=== PATIENT | female | born 1995 | race Caucasian/White ===

== ENCOUNTER → 2019-08-28 11:30 | Outpatient (BNVA) | payer MEDICAID, SELFPAY | PROVIDERS: Visit Provider Obstetrics & Gynecology | DX: N92.6 Irregular menstruation, unspecified (principal) | CPT/HCPCS: 84702 ==

== ENCOUNTER → 2019-10-08 11:00 | Outpatient (BNVA) | payer MEDICAID, SELFPAY | PROVIDERS: Referring Provider Obstetrics & Gynecology Female Pelvic Medicine and Reconstructive Surgery; Visit Provider Obstetrics & Gynecology Female Pelvic Medicine and Reconstructive Surgery | DX: N92.6 Irregular menstruation, unspecified (principal) | CPT/HCPCS: 84703 ==

== ENCOUNTER → 2020-02-07 16:06 | Outpatient (BNVA) | payer MEDICAID, SELFPAY | PROVIDERS: PCP Internal Medicine; Visit Provider Nurse Practitioner Family | DX: Z20.2 Contact with and (suspected) exposure to infections with a predominantly sexual mode of transmission (principal) | CPT/HCPCS: 87491; 87591 ==

== ENCOUNTER → 2020-02-20 15:41 | Outpatient (BNVA) | payer MEDICAID, SELFPAY | PROVIDERS: PCP Internal Medicine; Visit Provider Nurse Practitioner | DX: R30.0 Dysuria (principal); N89.8 Other specified noninflammatory disorders of vagina | CPT/HCPCS: 81000; 84450; 87070 ==

== ENCOUNTER 2020-07-22 16:13 | Outpatient (CLI) | payer MEDICAID, BC, SELFPAY ==
--- NOTE | 2020-07-22 16:36 | XRR_ITS ---
PROCEDURE INFORMATION: Exam: XR Thoracic Spine, 3 Views Exam date and time: 07/22/2020 4:37 PM Age: 25 years old Clinical indication: Pain in thoracic spine; Without myelpathy or radiculopathy; Patient HX: Chronic back pain. (needed for breast augmentation) TECHNIQUE: Imaging protocol: XR of the thoracic spine, 3 views. COMPARISON: CT Thoracic Sp[place] wo IV* [id number] 11/30/2015 6:09 AM FINDINGS: Bones/joints: There is mild lower thoracic scoliosis convex to the right. Otherwise the thoracic spine is unremarkable with no fracture or significant degenerative change. Soft tissues: Unremarkable. XR/XR thoracic spine 3V* [id number] IMPRESSION: Mild scoliosis. No other significant abnormality is seen in the thoracic spine.
--- NOTE | 2020-07-22 16:36 | XRR_ITS ---
PROCEDURE INFORMATION: Exam: XR Cervical Spine, 2 or 3 Views Exam date and time: 07/22/2020 4:37 PM Age: 25 years old Clinical indication: Patient HX: Chronic back pain. (needed for breast augmentation) TECHNIQUE: Imaging protocol: XR of the cervical spine, 2 or 3 views. COMPARISON: CT Cervical Spine * [id number] 11/30/2015 6:03 AM FINDINGS: Bones/joints: There is mild reversal of the cervical curvature on the lateral view. This could be due to a chin positioning. No fracture or other acute bony abnormalities are seen. There are no significant degenerative changes. Soft tissues: Unremarkable. XR/XR cervical spine 3V* [id number] IMPRESSION: 1. Mild reversal of the cervical curvature possibly due to positioning or pain. 2. No fracture seen.
== END 2020-07-22 16:14 | disposition home or self-care (01) ==
PROVIDERS: PCP Internal Medicine; Visit Provider Nurse Practitioner Family
DX: N62 Hypertrophy of breast (principal); M54.6 Pain in thoracic spine; M54.2 Cervicalgia
CPT/HCPCS: 72040; 72072

== ENCOUNTER → 2021-05-10 09:27 | Outpatient (BNVA) | payer BC, SELFPAY | PROVIDERS: PCP Internal Medicine; Visit Provider Nurse Practitioner Women's Health | DX: N92.6 Irregular menstruation, unspecified (principal) | CPT/HCPCS: 81025 ==

== ENCOUNTER 2021-05-21 08:47 | Emergency (ER) | payer BC, MEDICAID, SELFPAY ==
[2021-05-21 09:05] VITALS: BP 148/83; PULSE 96; RESP 20; TEMP 37.4; O2SAT 97; BMI 32.0
--- NOTE | 2021-05-21 09:14 | USR_ITS ---
PROCEDURE INFORMATION: Exam: US , Limited Exam date and time: 05/21/2021 9:14 AM Age: 26 years old Clinical indication: Antepartum complications; Bleeding; ; Patient HX: PT should be 7 weeks there is a 6 w empty gest sac with no heart beat or pole; Additional info: Threatened miscarriage TECHNIQUE: Imaging protocol: Real-time ultrasound of the maternal uterus with image documentation. Exam focused on the clinical indication. COMPARISON: US V w TV [id number] 05/10/2019 9:35 PM FINDINGS: Gestation: Small intrauterine possible gestational sac. No yolk sac or embryo. BIOMETRY: Estimated due date (AUA): MALLY 01/13/2022, compare LMP MALLY 01/04/2022. Mean sac diameter: Mean sac diameter 6 weeks 1 day. Compare LMP 7 weeks 3 days. MATERNAL: Right adnexa: Right ovarian 21 mm physiologic follicle. No solid mass. The arterial resistive index is 0.91. Left adnexa: Left ovary 1.9 x 2.6 x 2.3 cm. No cyst or mass. US/US transvaginal [id number] IMPRESSION: Small intrauterine possible gestational sac. No yolk sac or embryo. The 6 week 1 day mean sac diameter estimated gestational age is less than the LMP. Clinical review of the dating recommended. A 1 week follow-up to assess viability is recommended. Radiation Dose CTDIVOL = (mGy): DLP = (mGy-cm)
--- NOTE | 2021-05-21 09:15 | ED_ITS ---
HPI - General: Chief complaint: Vaginal Bleeding Stated complaint: BLEEDING/7 WKS Time Seen by Provider: 05/21/21 09:09 History of Present Illness: HPI Narrative: 26-year-old female, G4, P1 approximately 7 weeks gestation presents with vaginal spotting. States this started this morning. Denies any pain. Denies any dysuria. Denies nausea vomiting diarrhea. Denies trauma to the abdomen. Denies fevers or chills. States she is certain that she is Rh+. Date of Last Menstrual Period: 03/30/21 Review of Systems Narrative: - CONSTITUTIONAL: Denies weight loss, fever and chills. - HEENT: Denies changes in vision and hearing. - RESPIRATORY: Denies SOB and cough. - CV: Denies palpitations and CP. - GI: Denies abdominal pain, nausea, vomiting and diarrhea. - : As above - MSK: Denies myalgia and joint pain. - SKIN: Denies rash and pruritus. - NEUROLOGICAL: Denies headache, weakness, numbness and syncope. 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 She has never been on blood thinners for this. History of femoral angiogram 04/2015--for venous malformation on the right ankle Major depressive disorder, recurrent episode Impression: Patient had depression prior to her most recent . She had been on fluoxetine during the but had recently stopped it due to forgetting to take the medication. Patient reporting depression symptoms. Patient encouraged to restart medications. Patient also encouraged to follow- [facility] with [facility]. Recorded 05/19/2019 01:04 PM by Sylvie Mneezes APN,COBY, [facility] Lab/Procedure Order. FLUoxetine HCl 10MG, 1 (one) Capsule daily, #90, 90 days starting 05/19/2019, No Refill. Active. No pertinent past medical history neghx:htn,dm,thyroid, PCP: Valenciadanyell Saucedaek Venous malformation (~2014) in her right lower leg---evaluated in [facility] Surgical History (Updated 05/10/21 @ 09:57 by Sylvie Menezes APN, WHNP) History of bilateral breast reduction surgery (~11/2020) performed at [facility] in [place] Family History Grandmother Heart disease Paternal--Maternal Great Grandmother Grandfather Thyroid disease Maternal Family/Other Uterine cancer Maternal side--unsure of who Denies family history of Diabetes Chronic kidney disease (CKD) Hypertension Stroke Social History Smoking and tobacco status: current every day smoker Alcohol intake: current Alcohol intake frequency: holidays/special occasions only Female Reproductive History: Date of last menstrual period: 03/30/21 Physical Exam Narrative: EXAM NARRATIVE: - GENERAL: Alert and oriented x 3. No acute distress. Well-nourished. - EYES: EOMI. Anicteric. - HENT: Atraumatic, no C-spine tenderness. Moist mucous membranes. No scleral icterus. No cervical lymphadenopathy. - LUNGS: Clear to auscultation bilaterally. No accessory muscle use. Equal lung sounds bilaterally. No respiratory distress. - CARDIOVASCULAR: Regular rate and rhythm. No murmur. No JVD. - ABDOMEN: Soft, non-tender and non-distended. Negative CVA tenderness bilaterally, no rebound or guarding, negative Narayan sign. No palpable masses. - EXTREMITIES: No edema. Non-tender. - SKIN: No rashes or lesions. Warm. - NEUROLOGIC: No meningismus or focal neurological deficits. CN II-XII grossly intact. - PSYCHIATRIC: Cooperative. Appropriate mood and affect. Course Vital Signs: Vital signs: Vital Signs Temperature 99.3 F 05/21/21 09:05 Pulse Rate 96 05/21/21 09:05 Respiratory Rate 20 H 05/21/21 09:05 Blood Pressure 148/83 05/21/21 09:05 Pulse Oximetry 97 05/21/21 09:05 MDM - OB/Uterine Contractions MDM Narrative: Medical decision making narrative: 26-year-old female presents due to vaginal spotting. Physical exam unremarkable. Ultrasound reveals possible gestational sac but no discernible heartbeat. No signs of ectopic . hCG level is 6000. Instructed patient to follow-up with [facility] in 2 days return to emergency department for repeat hCG level. Otherwise lab work is unremarkable except for urinalysis concerning for UTI. Prescription for Keflex provided. Patient is certain she is Rh+ so RhoGam not provided. At this time I believe patient would be safe for discharge and outpatient follow- up. Return precautions provided. Plan was reviewed with the patient who expressed understanding. Questions answered. Patient will follow up with [facility] and PCP. Patient discharged in stable condition. Lab Data: Labs: Lab Results 05/21/21 05/21/21 05/21/21 09:21 09:21 09:58 WBC 8.1 10^3/uL 10^3/ uL (4.0-10.0) RBC 5.10 10^6/uL 10^6 /uL (4.1-5.3) Hgb 15.1 g/dL g/dL (11.5-15.3) Hct 44.6 % % (37.0-47.0) MCV 87.5 fl fl (81-99) MCH 29.6 pg pg (28.0-34.0) MCHC 33.9 g/dL g/dL (30.0-36.0) RDW 11.6 % L % (12.1-15.1) Plt Count 268 10^3/cmm 10^3 /cmm (130-400) MPV 12.2 fL H fL (7.4-10.4) Neut % (Auto) 67.3 % % Lymph % (Auto) 24.5 % % [place] % (Auto) 5.1 % % Eos % (Auto) 2.1 % % Baso % (Auto) 0.9 % % Neut # (Auto) 5.44 10^3/uL 10^3 /uL (1.8-7.7) Lymph # (Auto) 2.0 10^3/uL 10^3/ uL (0.8-4.8) [place] # (Auto) 0.4 10^3/uL 10^3/ uL (0.2-0.9) Eos # (Auto) 0.2 10^3/uL 10^3/ uL (0.0-0.8) Baso # (Auto) 0.1 10^3/uL 10^3/ uL (0.0-0.1) Nucleated RBC % (a uto) 0 % % Nucleated RBCs # 0.0 /100WBC /100W BC Sodium 137 mmol/L mmol/L (136-145) Potassium 4.0 mmol/L mmol/L (3.5-5.1) Chloride 101 mmol/L mmol/L (98-107) Carbon Dioxide 25 mmol/L mmol/L (22-29) Anion Gap 15.0 (5-19) BUN 9 mg/dL mg/dL (6-20) Creatinine 0.5 mg/dL mg/dL (0.5-0.9) GFR Calculation 151.6 mL/min H mL /min (90-130) Glucose 90 mg/dL mg/dL (65-115) Calculated Osmolal ity 282 mOsm/kg L mOs m/kg (285-295) Calcium 8.9 mg/dL mg/dL (8.5-10.5) Total Bilirubin 0.3 mg/dL mg/dL (0.15-1.2) AST 16 U/L U/L (0-32) ALT 20 U/L U/L (0-33) Alkaline Phosphata se 71 IU/L IU/L (35-105) Total Protein 7.2 g/dL g/dL (6.6-8.7) Albumin 4.3 g/dL g/dL (3.5-5.2) Globulin 2.9 g/dL g/dL (1.3-4.6) Ser , Jules i-Qnt 6669.00 mIU/mL mI U/mL Urine Color Yellow (Yellow) Urine Appearance Sl hazy (CLEAR) Urine pH 8 H (5-7) Ur Specific Gravit y 1.005 (1.005-1.030) Urine Protein Neg (Negative) Urine Glucose (UA) Norm (Normal) Urine Ketones Negative (Negative) Urine Blood 3+ H (Negative) Urine Nitrate Negative (Negative) Urine Bilirubin Neg (Negative) Prot Sulfosalicyli c Acd Negative (Negative) Urine Urobilinogen Norm mg/dL mg/dL (Negative) Ur Leukocyte Ana Luisa ase 2+ H (Negative) Urine RBC 5-10 /hpf H /hpf (0-2) Urine WBC 10-15 /hpf H /hpf (0-5) Ur Squamous Epith Cells 15-25 /hpf H /hpf (0-5) Amorphous Sediment Not Reportable Urine Bacteria 2+ /hpf H /hpf (NONE) Urine Mucus 1+ /hpf /hpf Discharge Plan Discharge Prescriptions: No Action acetaminophen [Tylenol] 325 mg tablet 325 mg PO QID PRNRF: 0 albuterol sulfate [ProAir HFA] 90 mcg/actuation HFA aerosol inhaler 2 puff inhalation Q6H PRNRF: 0 Coding Level of Care Code ED [employer] Installer for Gutierrez Hanks
[2021-05-21 09:54] LABS: Basophils # 0.1 10^3/uL (0.0-0.1); Basophils % 0.9 %; Eosinophils # 0.2 10^3/uL (0.0-0.8); Eosinophils % 2.1 %; Hematocrit 44.6 % (37.0-47.0); Hemoglobin 15.1 g/dL (11.5-15.3); Lymphocytes % 24.5 %; Mean Corpuscular HGB Conc 33.9 g/dL (30.0-36.0); Mean Corpuscular Hemoglobin 29.6 pg (28.0-34.0); Mean Corpuscular Volume 87.5 fl (81-99); Mean Platelet Volume 12.2 fL (7.4-10.4); Monocytes # 0.4 10^3/uL (0.2-0.9); Monocytes % 5.1 %; Neutrophils # 5.44 10^3/uL (1.8-7.7); Neutrophils % 67.3 %; Nucleated Red Blood Cells % 0 %; Platelet Count 268 10^3/cmm (130-400); Red Cell Distribution Width 11.6 % (12.1-15.1); White Blood Count 8.1 10^3/uL (4.0-10.0)
--- NOTE | 2021-05-21 09:57 | PC.NURSE ---
Pt denies any pain currently but states she had an episode of sharp pelvic pain last night.
[2021-05-21 10:23] LABS: Alanine Aminotransferase 20 U/L (0-33); Albumin Level 4.3 g/dL (3.5-5.2); Alkaline Phosphatase 71 IU/L (35-105); Aspartate Amino Transferase 16 U/L (0-32); Blood Urea Nitrogen 9 mg/dL (6-20); Calcium 8.9 mg/dL (8.5-10.5); Carbon Dioxide 25 mmol/L (22-29); Chloride 101 mmol/L (98-107); Globulin 2.9 g/dL (1.3-4.6); Glomerular Filtration Rate 151.6 mL/min (90-130); Glucose 90 mg/dL (65-115); Osmolality Calculated 282 mOsm/kg (285-295); Sodium 137 mmol/L (136-145); Total Bilirubin 0.3 mg/dL (0.15-1.2); Total Protein 7.2 g/dL (6.6-8.7)
[2021-05-21 10:48] LABS: Bilirubin Urine Neg (Negative); Blood Urine 3+ (Negative); Glucose Urine UA Norm (Normal); Ketones Urine Negative (Negative); Leukocyte Esterase Urine 2+ (Negative); Nitrate Urine Negative (Negative); Protein Urine Neg (Negative); Specific Gravity, Urine 1.005 (1.005-1.030); Sulfosalicylic Acid Urine Negative (Negative); Urine Appearance SL Hazy (CLEAR); Urine Color Yellow (Yellow); Urobilinogen Urine Norm (Negative); pH Urine 8 (5-7)
[2021-05-21 10:50] LABS: Bacteria Urine 2+ /hpf; Mucus Urine 1+ /hpf; Squamous Epithelial Cell Urine 15-25 /hpf (0-5)
[2021-05-21 10:51] LABS: Add Urine Culture? No
== END 2021-05-21 11:24 | disposition home or self-care (01) ==
PROVIDERS: Emergency Provider Emergency Medicine; PCP Internal Medicine
DX: O46.91 Antepartum hemorrhage, unspecified, first trimester (principal); O99.331 Smoking (tobacco) complicating pregnancy, first trimester; F17.210 Nicotine dependence, cigarettes, uncomplicated; Z3A.01 Less than 8 weeks gestation of pregnancy
CPT/HCPCS: 76830; 80053; 81001; 84702; 85025; 99283

== ENCOUNTER → 2021-05-23 10:34 | Outpatient (BNVA) | payer BC, MEDICAID, SELFPAY | PROVIDERS: PCP Internal Medicine; Visit Provider Obstetrics & Gynecology | DX: O20.0 Threatened abortion (principal) | CPT/HCPCS: 84702 ==

== ENCOUNTER → 2021-05-24 11:44 | Outpatient (BNVA) | payer BC, MEDICAID, SELFPAY | PROVIDERS: PCP Internal Medicine; Visit Provider Obstetrics & Gynecology | DX: O20.0 Threatened abortion (principal) | CPT/HCPCS: 84702 ==

== ENCOUNTER → 2021-05-31 13:30 | Outpatient (BNVA) | payer BC, MEDICAID, SELFPAY | PROVIDERS: PCP Internal Medicine; Visit Provider Obstetrics & Gynecology | DX: O20.0 Threatened abortion (principal) | CPT/HCPCS: 84702 ==

== ENCOUNTER → 2021-06-08 09:13 | Outpatient (BNVA) | payer BC, MEDICAID, SELFPAY | PROVIDERS: PCP Internal Medicine; Visit Provider Obstetrics & Gynecology | DX: O20.0 Threatened abortion (principal) | CPT/HCPCS: 84702 ==

== ENCOUNTER → 2021-06-23 09:24 | Outpatient (BNVA) | payer BC, MEDICAID, SELFPAY | PROVIDERS: PCP Internal Medicine; Visit Provider Obstetrics & Gynecology | DX: O20.0 Threatened abortion (principal) | CPT/HCPCS: 84702 ==

== ENCOUNTER → 2021-07-17 15:51 | Outpatient (BNVA) | payer BC, MEDICAID, SELFPAY | PROVIDERS: PCP Internal Medicine; Visit Provider Obstetrics & Gynecology | DX: N92.6 Irregular menstruation, unspecified (principal); Z12.4 Encounter for screening for malignant neoplasm of cervix | CPT/HCPCS: 83036; 83525; 84443; 88175 ==

== ENCOUNTER → 2021-09-14 09:27 | Outpatient (BNVA) | payer BC, MEDICAID, SELFPAY | PROVIDERS: PCP Internal Medicine; Visit Provider Psychiatry & Neurology Psychiatry | DX: F43.8 Other reactions to severe stress (principal); F19.10 Other psychoactive substance abuse, uncomplicated | CPT/HCPCS: 90792 ==

== ENCOUNTER → 2021-09-18 10:15 | Outpatient (BNVA) | payer BC, MEDICAID, SELFPAY | PROVIDERS: PCP Internal Medicine; Visit Provider Obstetrics & Gynecology | DX: R30.0 Dysuria (principal) | CPT/HCPCS: 81000; 87086 ==

== ENCOUNTER → 2021-09-26 08:30 | Outpatient (BNVA) | payer BC, MEDICAID, SELFPAY | PROVIDERS: PCP Internal Medicine; Visit Provider Obstetrics & Gynecology | DX: N92.6 Irregular menstruation, unspecified (principal) | CPT/HCPCS: 84702 ==

== ENCOUNTER → 2021-11-13 07:56 | Outpatient (BNVA) | payer BC, MEDICAID, SELFPAY | PROVIDERS: PCP Internal Medicine; Visit Provider Counselor Mental Health | DX: F33.2 Major depressive disorder, recurrent severe without psychotic features (principal) | CPT/HCPCS: 90834 ==

== ENCOUNTER → 2022-01-24 15:11 | Outpatient (BNVA) | payer BC, MEDICAID, SELFPAY | PROVIDERS: PCP Internal Medicine; Visit Provider Obstetrics & Gynecology | DX: N75.0 Cyst of Bartholin's gland (principal) | CPT/HCPCS: 87070; 87075; 87077; 87205 ==

== ENCOUNTER 2022-04-15 05:13 | Emergency (ER) | payer BC, MEDICAID, SELFPAY ==
[2022-04-15 05:15] VITALS: BP 164/102; PULSE 121; RESP 24; TEMP 37; O2SAT 97; BMI 36.6
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
[2022-04-15] MEDS: oxyCODONE-APAP 5-325 mg Tablet 2 TAB PO (06:05)
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
[2022-04-15 06:31] LABS: Add Urine Microscopic? NO; Charge for UA Resulting for Rev
[2022-04-15 06:33] LABS: Bilirubin Urine Neg (Negative); Blood Urine Neg (Negative); Glucose Urine UA Norm (Normal); Ketones Urine Negative (Negative); Leukocyte Esterase Urine Negative (Negative); Nitrate Urine Negative (Negative); Protein Urine Neg (Negative); Specific Gravity, Urine 1.005 (1.005-1.030); Urine Appearance Clear (CLEAR); Urine Color Straw (Yellow); Urobilinogen Urine Norm (Negative); pH Urine 6.5 (5-7)
[2022-04-15 06:35] LABS: HCG Qualitative Urine. Negative (Negative)
[2022-04-15 08:16] VITALS: BP 122/78; PULSE 65; RESP 16; O2SAT 98
== END 2022-04-15 08:19 | disposition home or self-care (01) ==
PROVIDERS: Emergency Provider Emergency Medicine
DX: S00.03XA Contusion of scalp, initial encounter (principal); S06.0X0A Concussion without loss of consciousness, initial encounter; Y04.2XXA Assault by strike against or bumped into by another person, initial encounter
CPT/HCPCS: 70450; 70486; 81003; 81025; 99284

== ENCOUNTER → 2022-08-02 10:30 | Outpatient (BNVA) | payer BC, MEDICAID, SELFPAY | PROVIDERS: Visit Provider Nurse Practitioner Women's Health | DX: Z00.01 Encounter for general adult medical examination with abnormal findings (principal) | CPT/HCPCS: 83036; 83520; 84146; 84443; 85025 ==

== ENCOUNTER → 2022-08-09 14:50 | Outpatient (BNVA) | payer BC, MEDICAID, SELFPAY | PROVIDERS: Visit Provider Nurse Practitioner Women's Health | DX: Z31.69 Encounter for other general counseling and advice on procreation (principal) | CPT/HCPCS: 84144 ==

== ENCOUNTER → 2022-08-16 15:28 | Outpatient (BNVA) | payer BC, MEDICAID, SELFPAY | PROVIDERS: Visit Provider Nurse Practitioner Women's Health | DX: N97.9 Female infertility, unspecified (principal) | CPT/HCPCS: 76830 ==

== ENCOUNTER → 2022-08-28 09:00 | Outpatient (BNVA) | payer BC, MEDICAID, SELFPAY | PROVIDERS: Visit Provider Nurse Practitioner Women's Health | DX: E34.9 Endocrine disorder, unspecified (principal) | CPT/HCPCS: 84144 ==

== ENCOUNTER → 2022-08-30 13:00 | Outpatient (BNVA) | payer BC, MEDICAID, SELFPAY | PROVIDERS: Visit Provider Nurse Practitioner Women's Health | DX: Z32.00 Encounter for pregnancy test, result unknown (principal) | CPT/HCPCS: 81025; 84146 ==

== ENCOUNTER 2022-09-02 14:13 | Emergency (ER) | payer BC, MEDICAID, SELFPAY ==
[2022-09-02 14:16] VITALS: BP 171/110; PULSE 99; RESP 16; TEMP 36.5; O2SAT 99; BMI 38.4
--- NOTE | 2022-09-02 14:27 | W.ED.WOUNDLC ---
HPI - Wound/Laceration General: Chief Complaint: Wound/Laceration Stated Complaint: fall/busted lip Time Seen by Provider: 09/02/22 14:18 Source: patient Mode of arrival: ambulatory Limitations: no limitations History of Present Illness: 27 yo f with UTD tetanus was wearing new socks in her kitchen which has wood floors. She turned a corner and splipped. She bit the inside of her lower lip with lower teeth and (due to some overbite) bit the outside of her lower lip with her upper central incisors. No LOC. No vomiting. No other injuries. Review of Systems General: Reports: 10 or more systems reviewed and unremarkable except in HPI and below ENMT: Reports: other (lower lip lacerations) [facility] ED PFSH: Medical History Asthma Blood clot associated with vein wall inflammation (~2014) current clot in artery in top of right foot; found and evaluated by cardiology Dr. Armstrong in [facility]. She has never been on blood thinners for this. History of femoral angiogram 04/2015--for venous malformation on the right ankle Major depressive disorder, recurrent episode Impression: Patient had depression prior to her most recent . She had been on fluoxetine during the but had recently stopped it due to forgetting to take the medication. Patient reporting depression symptoms. Patient encouraged to restart medications. Patient also encouraged to follow-up with [facility]. Recorded 05/19/2019 01:04 PM by Sylvie Menezes APN,WHNP, [facility] Lab/Procedure Order. FLUoxetine HCl 10MG, 1 (one) Capsule daily, #90, 90 days starting 05/19/2019, No Refill. Active. No pertinent past medical history neghx:htn,dm,thyroid, PCP: Erik Bowie Other reactions to severe stress Psychiatric care Substance abuse Venous malformation (~2014) in her right lower leg---evaluated in [facility] Surgical History History of bilateral breast reduction surgery (~11/2020) performed at [facility] in [place] Family History Grandmother Heart disease Paternal--Maternal Great Grandmother Grandfather Thyroid disease Maternal Family/Other Uterine cancer Maternal side--unsure of who Denies family history of Colon cancer Diabetes Breast cancer Hypertension Stroke Physical Exam Narrative: EXAM NARRATIVE: Patient appears her stated age, she is in no acute distress, there is a 1.5 cm superficial laceration just below the vermilion border of her lower lip. There is a 1 cm superficial laceration on the inside mucosal surface of her lower lip. The inside laceration does not have a flap. There are no foreign bodies on either laceration. This is not a through and through wound and does not match up. No dental trauma. The jaw was palpated and there were no step-offs, contusions, hematomas. Dental occlusion is normal for the patient. There is no submental tenderness or swelling. Patient's mental status is normal. She has normal alertness and orientation. Her speech is normal. She is warm and well-perfused. She moves all extremities. Her abdomen is soft and nondistended. Chest wall movement is even and unlabored. Procedures Laceration Laceration 1: Site: lip (Lower lip just below the vermilion border) Size (cm): 1.5 Description: linear Depth: simple, single layer Skin layer closed with: other (Dermabond) Course Vital Signs: Vital signs: Vital Signs Temperature 97.7 F 09/02/22 14:16 Pulse Rate 99 09/02/22 14:16 Respiratory Rate 16 09/02/22 14:16 Blood Pressure 171/110 09/02/22 14:16 Pulse Oximetry 99 09/02/22 14:16 Oxygen Delivery Me thod 09/02/22 14:16 MDM - Wound/Laceration Medical Decision Making Minor lacerations. Tetanus up-to-date. The laceration on the outside of the lower lip was cleaned with povidone iodine, dried, then Dermabond was used to adhere the skin edges. Discharge Plan Discharge Patient Disposition: Home Clinical Impression: Laceration of lip without complication, Fall from slipping Condition: Stable Prescriptions: No Action acetaminophen [Tylenol] 325 mg tablet 325 mg PO QID PRN albuterol sulfate [ProAir HFA] 90 mcg/actuation HFA aerosol inhaler 2 puff inhalation Q6H PRN naproxen 500 mg tablet 500 mg PO BID PRN Discharge Orders: Discharge ED (Routine); Ordered 02/26/23 Ordered By: Venkat Alcantar Referrals: Jose Reeder MD [Primary Care Provider] - Patient Instructions: Facial Laceration (ED), Opioid Safety, Pain Management Activity Restrictions/Additional Instructions: Rinse your mouth with saline (saltwater) or mouthwash after eating. Leave the skin glue in place until it falls off naturally. THis is usually 2-3 days. Return to ER if you have fever, bad bleeding, or signs of infection. 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
== END 2022-09-02 14:40 | disposition home or self-care (01) ==
PROVIDERS: Emergency Provider Emergency Medicine; PCP Family Medicine
DX: S01.511A Laceration without foreign body of lip, initial encounter (principal); W01.0XXA Fall on same level from slipping, tripping and stumbling without subsequent striking against object, initial encounter
CPT/HCPCS: 12011; 99282

== ENCOUNTER → 2022-10-24 09:48 | Outpatient (BNVA) | payer BC, MEDICAID, SELFPAY | PROVIDERS: PCP Family Medicine; Visit Provider Nurse Practitioner Women's Health | DX: N39.0 Urinary tract infection, site not specified (principal) | CPT/HCPCS: 81000 ==

== ENCOUNTER → 2022-11-12 13:00 | Outpatient (BNVA) | payer BC, MEDICAID, SELFPAY | PROVIDERS: PCP Family Medicine; Visit Provider Obstetrics & Gynecology | DX: E34.9 Endocrine disorder, unspecified (principal); N39.0 Urinary tract infection, site not specified | CPT/HCPCS: 84146; 87086 ==

== ENCOUNTER 2023-02-19 07:03 | Outpatient (CLI) | payer BC, MEDICAID, SELFPAY ==
--- NOTE | 2023-02-19 07:45 | USCV_ITS ---
Jaci Suh Age: 27 Gender: F : 1995 Exam Date: 02/19/2023 07:20 Ordering Phys: Lazaro Gardner MD (Andy) ([email or web address]) Technologist: KARTHIK Exam Location: [facility] [place] Indication: Vascular Malformation HISTORY: Anterior ankle birthmark looking area PROCEDURES: Venous duplex imaging was performed in only the right lower extremity. The following venous structures were evaluated: common femoral vein, profunda vein, proximal portion of the greater saphenous vein, superficial femoral vein, and the popliteal vein. In addition, the posterior tibial and peroneal trunk were evaluated. Serial compression, augmentation maneuvers, and spectral Doppler flow evaluation were performed. FINDINGS: Normal 2-D Doppler and augmentation and compressibility throughout the lower extremity venous structures. Additional imaging through the proximal calf veins also reveals no thrombus. Limited evaluation of the greater saphenous vein is patent with no thrombus. CONCLUSIONS No DVT right lower extremity. Dr. Tanya Rueda DO (Electronically Signed) Final Date: 19 February 2023 08:30 S
== END 2023-02-19 07:04 | disposition home or self-care (01) ==
PROVIDERS: PCP Family Medicine; Visit Provider Thoracic Surgery (Cardiothoracic Vascular Surgery)
DX: Q27.9 Congenital malformation of peripheral vascular system, unspecified (principal)
CPT/HCPCS: 93971

== ENCOUNTER → 2023-04-23 08:30 | Outpatient (BNVA) | payer BC, MEDICAID, SELFPAY | PROVIDERS: PCP Family Medicine; Visit Provider Nurse Practitioner Women's Health | DX: Z32.02 Encounter for pregnancy test, result negative (principal) | CPT/HCPCS: 84702 ==

== ENCOUNTER 2023-09-11 10:53 | Outpatient (CLI) | payer BC, MEDICAID, SELFPAY ==
--- NOTE | 2023-09-11 10:58 | MR_ITS ---
WS: [id number] MRI LUMBAR SPINE NONCONTRAST HISTORY: CHRONIC BACK PAIN COMPARISON: None available. TECHNIQUE: Sagittal and axial multisequence imaging is submitted. Normal lumbar alignment with no compression fractures or marrow edema. Disc spaces and vertebral body heights are well-preserved. Conus terminates normally at L1. L1-L2: Normal. L2-L3: Normal. L3-L4: Mild disc bulging with mild facet arthropathy. No stenosis. L4-L5: Mild annular disc bulging with a very tiny central disc protrusion. There is an additional sma ll LEFT foraminal disc protrusion with annular fissure. Mild to moderate ligamentum flavum and facet arthritis. Mild bilateral foraminal stenosis. L5-S1: Mild bilateral foraminal stenosis. There is mild encroachment upon the LEFT S1 nerve root due to disc and facet disease. Mild LEFT foraminal stenosis. Paravertebral soft tissues are normal. IMPRESSION: 1. No lumbar spine fracture. 2. No high-grade central stenosis. 3. L4-5: Very small central and LEFT foraminal disc protrusions. Mild to moderate ligamentum flavum and facet arthropathy and mild foraminal narrowing. 4. L5-S1: Mild LEFT foraminal stenosis. Mild encroachment upon the LEFT S1 nerve root.
== END 2023-09-11 10:54 | disposition home or self-care (01) ==
LOC: RAD 10:53
PROVIDERS: PCP Family Medicine; Visit Provider Family Medicine
DX: M48.07 Spinal stenosis, lumbosacral region (principal); M47.816 Spondylosis without myelopathy or radiculopathy, lumbar region; M51.26 Other intervertebral disc displacement, lumbar region
CPT/HCPCS: 72148

== ENCOUNTER → 2023-12-04 09:40 | Outpatient (BNVA) | payer BC, MEDICAID, SELFPAY | PROVIDERS: PCP Family Medicine; Visit Provider Anesthesiology Pain Medicine | DX: M51.16 Intervertebral disc disorders with radiculopathy, lumbar region (principal); M47.894 Other spondylosis, thoracic region | CPT/HCPCS: 72072 ==

== ENCOUNTER → 2024-01-03 10:40 | Outpatient (BNVA) | payer BC, MEDICAID, SELFPAY | PROVIDERS: PCP Family Medicine; Visit Provider Physician Assistant | DX: M25.512 Pain in left shoulder (principal); S29.012A Strain of muscle and tendon of back wall of thorax, initial encounter; X58.XXXA Exposure to other specified factors, initial encounter | CPT/HCPCS: 73030 ==

== ENCOUNTER 2024-02-15 15:42 | Emergency (ER) | payer BC, MEDICAID, SELFPAY ==
[2024-02-15 16:19] VITALS: BP 138/76; PULSE 106; RESP 17; TEMP 36.7; O2SAT 94; BMI 39.5
--- NOTE | 2024-02-15 16:40 | ED_ITS ---
HPI - Wound/Laceration General: Chief Complaint: Wound/Laceration Stated Complaint: fishing hook in rith thumb Time Seen by Provider: 02/15/24 16:39 History of Present Illness: 28-year-old female comes in today with f sarah in the right thumb. Patient was fishing and excellently caught the fishhook into her thumb when she was trying to release a fish from the lower. Patient's last tetanus was 6 years ago. Patient appears nontoxic. Patient appears in no acute distress. Related Data Home Medications Medication Instructions Recorded Confirmed acetaminophen 325 mg tablet 325 mg PO QID PRN 05/10/21 01/03/24 (Tylenol) albuterol sulfate 90 mcg/actuation 2 puff inhalation Q6H PRN 05/10/21 01/03/24 aerosol inhaler (ProAir HFA) naproxen 500 mg tablet 500 mg PO BID PRN 08/02/22 01/03/24 lidocaine 4 % topical patch 1 patch topical DAILY PRN 02/07/23 01/03/24 (AsperFlex (lidocaine)) lisinopril 20 1 tab PO DAILY 02/07/23 01/03/24 mg-hydrochlorothiazide 12.5 mg tablet methylphenidate HCl 27 mg 27 mg PO DAILY 02/07/23 01/03/24 tablet,extended release 24 hr (Concerta) tizanidine 4 mg capsule 4 mg PO Q8H PRN 02/07/23 01/03/24 cetirizine 10 mg tablet (24Hour 10 mg PO DAILY PRN 01/03/24 01/03/24 Allergy) Previous Rx's Medication Instructions Recorded gabapentin 300 mg capsule 300 mg PO TID pain #90 caps 10/23/23 methocarbamol 500 mg tablet 500 mg PO TID 30 days #90 tabs 01/03/24 prednisone 20 mg tablet 20 mg PO DAILY #15 tabs 01/03/24 cephalexin 500 mg capsule 500 mg PO BID 7 days #14 caps 02/15/24 Allergies Allergy/AdvReac Type Severity Reaction Status Date / Time No Known Allergies Allergy Verified 02/15/24 16:21 Review of Systems General: Reports: 10 or more systems reviewed and unremarkable except in HPI and below Skin/Breast: Reports: other ([place] right thumb) PFSH ED PFSH: Medical History Substance abuse Other reactions to severe stress Major depressive disorder, recurrent episode Impression: Patient had depression prior to her most recent . She had been on fluoxetine during the but had recently stopped it due to forgetting to take the medication. Patient reporting depression symptoms. Patient encouraged to restart medications. Patient also encouraged to follow- up with [facility]. Recorded 05/19/2019 01:04 PM by Sylvie Menezes, AGNIESZKA,WHKEY, [facility] Lab/Procedure Order. FLUoxetine HCl 10MG, 1 (one) Capsule daily, #90, 90 days starting 05/19/2019, No Refill. Active. Asthma No pertinent past medical history neghx:htn,dm,thyroid, PCP: Valencia Sequoyah Blood clot associated with vein wall inflammation (~2014) current clot in artery in top of right foot; found and evaluated by cardiology Dr. Armstrong in [facility]. She has never been on blood thinners for this. Venous malformation (~2014) in her right lower leg---evaluated in [facility] History of femoral angiogram 04/2015--for venous malformation on the right ankle Surgical History Hx of breast reduction, elective History of bilateral breast reduction surgery (~11/2020) performed at [facility] in [place] Family History Grandmother Heart disease Paternal--Maternal Great Grandmother Grandfather Thyroid disease Maternal Family/Other Uterine cancer Maternal side--unsure of who Denies family history of Colon cancer Diabetes Breast cancer Hypertension Stroke Social History Smoking and tobacco/nicotine status: former use of tobacco/nicotine Alcohol intake: current Alcohol intake frequency: 0-2 Drinks per Day Substance/Drug Use: current Substance/Drug use frequency: daily Marital status: Number of children: 1 Pets and animals: Yes Pets & animals: dog(s) and snake(s) Physical Exam Const: COMMON NORMALS: alert HENMT: COMMON NORMALS: normocephalic HEAD & SCALP: normocephalic Neck/C-Spine: COMMON NORMALS: full ROM Resp: COMMON NORMALS: normal respiratory effort Cardio: COMMON NORMALS: regular rate RATE: regular rate GI: COMMON NORMALS: Soft to palpation PALPATION: Yes Soft to palpation Extremity: RIGHT UPPER EXTREMITY: Yes hand & digits (Right thumb ulnar aspect visible foreign body) Neuro: SENSORIUM/ORIENTATION: Yes alert Skin: TRAUMA: puncture (Right thumb with embedded fishhook) Procedures Foreign Body Removal Site: right and upper extremity Description of foreign body: fish hook Sedation/Analgesia: other (2% lidocaine, 1 mL) Technique: removal with forceps and incision made to facilitate removal Confirmed by:: direct visualization Complications: none Neurovascular: normal distal pulse and normal capillary fill Course Vital Signs: Vital signs: Vital Signs Temperature 98.1 F 02/15/24 16:19 Pulse Rate 106 H 02/15/24 16:19 Respiratory Rate 17 02/15/24 16:19 Blood Pressure 138/76 02/15/24 16:19 Pulse Oximetry 94 02/15/24 16:19 Oxygen Delivery Me thod Room Air 02/15/24 16:19 MDM - Wound/Laceration Medical Decision Making 28-year-old female comes in today with a fishhook in the ulnar aspect of the right thumb. Patient cut off the hook that had left the bayron embedded into the finger. Differential diagnosis includes but not limited to need for prophylaxis antibiotic, need for prophylaxis tetanus, foreign body. Remainder the fishhook was removed with incision to facilitate removal. Patient tolerated well. Wound was dressed with a dry dressing. Patient was recommended to follow-up with primary care as needed. Patient was updated on her tetanus and given cephalexin 1 capsule twice a day for 7 days. No radiology studies performed this visit Discharge Plan Discharge Patient Disposition: Home Clinical Impression: Fish hook in finger Condition: Stable Prescriptions: New cephalexin 500 mg capsule 500 mg PO BID 7 Days Qty: 14 0RF No Action acetaminophen [Tylenol] 325 mg tablet 325 mg PO QID PRN albuterol sulfate [ProAir HFA] 90 mcg/actuation HFA aerosol inhaler 2 puff inhalation Q6H PRN naproxen 500 mg tablet 500 mg PO BID PRN lidocaine [AsperFlex (lidocaine)] 4 % adhesive patch,medicated 1 patch topical DAILY PRN lisinopril-hydrochlorothiazide 20-12.5 mg tablet 1 tab PO DAILY methylphenidate HCl [Concerta] 27 mg tablet extended release 24hr 27 mg PO DAILY tizanidine 4 mg capsule 4 mg PO Q8H PRN gabapentin 300 mg capsule 300 mg PO TID Qty: 90 0RF cetirizine [24Hour Allergy] 10 mg tablet 10 mg PO DAILY PRN methocarbamol 500 mg tablet 500 mg PO TID 30 Days Qty: 90 2RF prednisone 20 mg tablet 20 mg PO DAILY Qty: 15 0RF Rx Instructions: 60mg X3 days 40mg X2 days 20mg X 2days Discharge Orders: Discharge ED (Routine); Ordered 02/15/24 Ordered By: Lazaro Persaud Referrals: Jose Reeder MD [Primary Care Provider] - Discharge Diet: Usual diet Discharge Activity: Increase activity as tolerated Patient Instructions: [place] Injuries Activity Restrictions/Additional Instructions: Keep wound clean and dry for the next 48 hours. After that she can wash the area gently with mild soap and water and cover with a Band-Aid. Take antibiotics for 5 to 7 days for prophylaxis therapy against infection. Follow- up with primary care. Return to ED for worsening symptoms such as increased redness and swelling, high fever, or severe pain. 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
[2024-02-15] MEDS: tetanus-dipt-pertussis 0.5 mL SDV IM (16:59)
[2024-02-15 17:04] VITALS: BP 121/89; PULSE 98; RESP 16; TEMP 36.7; O2SAT 97
== END 2024-02-15 17:02 | disposition home or self-care (01) ==
PROVIDERS: Emergency Provider Nurse Practitioner Family; PCP Family Medicine
DX: S61.041A Puncture wound with foreign body of right thumb without damage to nail, initial encounter (principal); W26.8XXA Contact with other sharp object(s), not elsewhere classified, initial encounter; Z87.891 Personal history of nicotine dependence; Z23 Encounter for immunization
CPT/HCPCS: 10120; 90715; 99283; A6446

== ENCOUNTER 2025-07-06 01:46 | Emergency (ER) | payer BC, MEDICAID, SELFPAY ==
--- NOTE | 2025-07-06 01:50 | XRR_ITS ---
PROCEDURE INFORMATION: Exam: XR Right Ankle Exam date and time: 07/06/2025 1:55 AM Age: 30 years old Clinical indication: Injury or trauma; Fall; Sprain or strain; Ankle; Right; Injury details: Slipped on stairs; Additional info: Pain/injury TECHNIQUE: Imaging protocol: Radiologic exam of the right ankle. Views: 3 or more views. COMPARISON: CR XR ankle RT min 3V* [id number] 09/24/2022 11:34 AM FINDINGS: Bones/joints: The mortise is intact. Fracture of the base of the 5th metatarsal which has a subacute appearance, i.e. appearance of a healing fracture rather than acute fracture. Small enthesophytes inferior and superior calcaneus. Normal bone mineralization. Soft tissues: Moderate soft tissue swelling. XR/XR ankle RT min 3V* [id number] IMPRESSION: 1. Fracture of the base of the 5th metatarsal which has a subacute appearance, i.e. appearance of a healing fracture rather than acute fracture. 2. Moderate soft tissue swelling.
--- NOTE | 2025-07-06 01:50 | XRR_ITS ---
PROCEDURE INFORMATION: Exam: XR Right Foot Exam date and time: 07/06/2025 1:55 AM Age: 30 years old Clinical indication: Injury or trauma; Fall; Blunt trauma; Foot; Right; Injury details: Slipped on stairs; Additional info: Pain/injury TECHNIQUE: Imaging protocol: Radiologic exam of the right foot. Views: 3 or more views. COMPARISON: CR XR ankle RT min 3V* [id number] 09/24/2022 11:34 AM FINDINGS: Bones/joints: Nondisplaced fracture of the base of the 5th metatarsal , age indeterminate. No other fracture. Os navicularis. Soft tissues: Moderate soft tissue swelling. XR/XR foot RT min 3V* [id number] IMPRESSION: 1. Nondisplaced fracture of the base of the 5th metatarsal , age indeterminate. No other fracture. 2. Moderate soft tissue swelling.
[2025-07-06 01:52] VITALS: BP 161/113; PULSE 112; RESP 18; TEMP 36.6; O2SAT 98; BMI 34.2
--- OUTSIDE RECORDS SUMMARY | 2025-07-06 01:52 | XMS_ITS | Data Portability ---
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 Her Prolonged use of Concerta is effective but poses challenges due to her reproductive plans. Her low back pain management with Gabapentin is successful, providing pain relief. She requires additional psychological support to address anxiety related to surgical intervention. 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 Anxiety Related To Surgery: [email or web address] Not available 2025 15:49:50 Plan of Treatment Reminders Order Date Submit Date Provider Last Modified By Organization Details Last Modified Time Details Appointments RECHECK 15 2025 09:30A Xavier Reeder MD Not available Not available Not available Lab None recorded. Referral general surgeon referral 2024 025 Not available 10/13/2024 12:28:14 pain managemen t referral 2024 025 [facility], [address] [place], [address], 10/20/2024 10:07:38 Procedures None recorded. Surgeries None recorded. Imaging XR, cervical spine, 2 or 3 view 2024 025 [facility] ([facility]), [address] [facility], [place], [address], 10/01/2024 10:09:49 Medication Orders lidocaine 5 % topical patch 2024 [facility] 15, [address], [place], [address], 2025 14:44:42 Concerta 27 mg tablet,ex tended release 2024 [facility] 15, [address], [place], [address], 2025 14:39:15 Zepbound 2.5 mg/0.5 mL subcutane ous pen injector [email or web address] [place] [address] 15, [address], [place], [address], 04/19/2025 17:42:28 methocarb perla 500 mg tablet 2024 [facility] 15, [address], [place], [address], 10/28/2024 11:16:12 lisinopri l 20 mg-hydroc hlorothia zide 12.5 mg tablet 2024 [facility] 15, [address], [place], [address], 10/28/2024 11:14:38 omeprazol e 20 mg capsule,d elayed release 2024 [facility] 15, [address], [place], [address], 10/28/2024 11:13:43 Concerta 27 mg tablet,ex tended release 2024 025 [facility] 15, [address], [place], [address], 10/28/2024 11:16:14 cetirizin e 10 mg tablet 2024 025 [facility] 15, [address], [place], [address], 09/30/2024 15:39:03 Concerta 27 mg tablet,ex tended release 2024 025 3 [facility] 15, [address], [place], [address], 10/28/2024 10:58:07 Patient TargetsNo targets recorded. Patient Instructions Encounter Date Encounter Id Patient Instructions Last Modified By Organization Details Last Modified Time 2025 [id number] - Consider therapy options for anxiety at the [facility]. - Continue pursuing a healthy weight before attempting . - For Concerta discussions regarding conception, return or consult as necessary. - Follow up near the time of scheduled surgery for additional guidance. [email or web address] Not available 2025 15:51:13 During the consultation, we discussed the patient s desire to conceive and the implications of continuing Concerta, which is currently helping manage her attention-deficit hyperactivity disorder. While Gabapentin is effectively addressing her low back pain, I advised her on the importance of evaluating psychiatric support for anxiety, especially concerning the upcoming surgery. The patient's rare cutaneous diagnosis was discussed, noting potential publication opportunities due to its atypical nature. We addressed the necessity of maintaining weight loss, which might enhance her chances for successful conception and a healthier . We explored therapy options available at the [facility] for tailored psychological support. Follow-up was advised to reassess medication efficacy, weight management, and mental health support initiatives. [email or web address] Not available 2025 14:46:39 Reason for Referral General Surgeon Referral for Cholelithiasis without obstruction Referring Physician: Kayli Reeder, Family Medicine, Encounter Date: 09/30/2024 Pain Management Referral for Lumbosacral radiculopathy Referring Physician: Kayli Reeder, Family Medicine, Encounter Date: 09/30/2024 Results Created Date Observation Date Name Description Value Unit Range Abnormal Flag Note LastModifiedBy Organization Detail LastModifiedTime 05/24/20 25 05/25/2025 HCG, TOTAL , QN HCG, total, qn <5 mIU/m L normal Refer ence Range Nonpr egnan t or preme nopau patrice <5 Postm enopa usal <10 Value s from diffe rent assay metho ds may vary. The use of this assay to monit or or to diagn ose patie nts with cance r or any condi tion unrel ated to pregn sadia has not been clear ed or appro antonio by the FDA or the [facility] actur er of the assay . Not Available [employer] [facility] [id number] [place], [address], 05/25/2025 07:00:09 08/04/19 25 08/03/2024 US, liver No observ ation record ed. [facility] [address] [place], [address], 08/07/2024 14:02:00 10/02/1909/30/2024 XR, cervi madi spine , 2 or 3 view No observ ation record ed. [facility] [address] [place], [address], 10/02/2024 11:42:16 Result Notes None recorded. Problems Name Problem SNOMED Code Status Onset Date Resolution Date Notes Provider Name and Address Organization Details Recorded Time Mixed anxiety and depressi ve disorder 574802969 Active 2021 ANXIETY AND DEPRESSI ON; 06/27/20 22 8:54AM by Sushma Kennedy, Office Visit; Promoted ; acuity set as *; SUSHMA KENNEDY [facility] 3 09:49:48 Anxiety 06923590 Active 2022 Kayli Reeder MD [address] [place], [address], [facility] 3 16:02:40 Depressi ve disorder 41639283 Completed 202210/27/2024 Removal Reason: [email or web address] Alvarez Farhad maria, [facility] 5 12:56:04 Attentio n deficit hyperact ivity disorder 184677522 Completed 202210/27/2024 Removal Reason: Joana Reeder MD [address] [place] [address], [phone], [facility] 5 18:22:23 [facility] hyperten tong 51926056 Active 2022 Kayli Reeder MD [address] [place] [address], [phone], [facility] 3 16:02:45 Left-jose g ed piriform is syndrome 67289900367 9106 Active 2022 SUSHMA maria, [facility] 3 09:49:49 Morbid obesity 755306538 Active 2022 SUSHMA maria [facility] 3 09:49:48 Chronic back pain 195136609 Active 2022 SUSHMA maria, [facility] 3 09:49:48 Increase d liver function 19451357 Active 2022 SUSHMA maria [facility] 3 09:49:49 Low back pain 932974670 Active 2022 SUSHMA maria [facility] 3 09:49:49 Gastroes ophageal reflux disease 608128282 Active 2022 Kimmarie maria, [facility] 5 12:53:16 Adult attentio n deficit hyperact ivity disorder 429789701 Active 2022 Kimmarie maria, [facility] 5 12:52:35 Allergic rhinitis 43602587 Completed 202210/27/2024 Kim Farhad maria, [facility] 5 12:52:45 Atopic dermatit is 96687263 Completed 202210/27/2024 [facility] 12:52:55 Hemangio ma of skin 41020382 Completed 202210/27/2024 [facility] 5 12:53:29 Hemorrho ids 61152652 Active 2023 [facility] 5 12:53:38 Lumbosac ral radiculo shannon 0262964 Active 2023 [facility] 5 12:54:03 Myofasci al pain 727022412 Active 2023 Kim maria, [facility] 5 12:54:25 Degenera tion of lumbar interver tebral disc 79477108 Active 2023 Kim maria, [facility] 5 12:53:10 Post-tra umatic stress disorder 37330095 Active 2023 Kim maria, [facility] 5 12:54:50 Mild intermit tent asthma 711830323 Active 2023 Kim maria [facility] 5 12:54:09 Lacerati on of right thumb 50936455078 090244 Completed 202310/27/2024 [facility] 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 5 12:54:41 Liver enzymes level above referenc e range 588431811 Active 2023 Kim maria [facility] 5 12:53:57 Neck pain 28536665 Active 2024 [facility] 12:54:33 Cholelit hiasis without obstruct ion 66226236 Active 2024 [facility] 5 12:56:30 Attentio n deficit hyperact ivity disorder 352900708 Active 2024 Kayli Reeder MD [address] [place] [address], [phone], [facility] 18:22:23 Body mass index 40+ - severely obese 348192582 Active 2024 Kayli Reeder MD [address] [place] [address], [phone], [facility] 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 15:48:48 Obesity caused by energy imbalanc e 105943777 Active 2024 Kayli Reeder MD [address] [place] [address], [phone], [facility] 15:50:33 Problem Notes None recorded. Procedures Surgical History Date Name Laterality Status Provider Name and Address Organization Details Recorded Time 04/01/20 23 Colonoscopy completed [facility] 04/04/2023 11:16:30 07/08/19 21 [facility] 15:10:59 07/08/19 15 [facility]/19[facility]2024 15:10:52 [facility] 11:00:26 Imaging Results None recorded. Procedure Notes None recorded. Medical Equipment None Reported. Allergies No known drug allergies Medications Name Sig Start Date Stop Date Status Note LastModified by Organization Details LastModified Time amoxicill in 500 mg capsule TAKE 1 CAPSULE BY MOUTH EVERY 8 HOURS 10/22 completed Not Available Not Available Not Available methocarb perla 500 mg tablet TAKE 2 TABLETS BY MOUTH THREE TIMES DAILY active Not Available Not Available No t Available cetirizin e 10 mg tablet TAKE 1 TABLET BY MOUTH ONCE DAILY active Not Available Not Available No t Available lisinopri l 20 mg-hydroc hlorothia zide 12.5 mg tablet TAKE 1 TABLET BY MOUTH ONCE DAILY active Not Available Not Available No t Available tizanidin e 4 mg tablet Take 1 tablet every 8 hours by oral route for 30 days. 04/17 completed Not Available Not Available Not Available medroxypr ogesteron e 2.5 mg tablet TAKE 1 TABLET BY MOUTH ONCE DAILY FOR 10 CONSECUT ANSELMO DAYS DURING THE MONTH 06/05 completed Not Available Not Available Not Available hydrocodo ne 5 mg-acetam inophen 325 mg tablet TAKE 1 TABLET BY MOUTH EVERY 6 HOURS NEEDED FOR PAIN 10/22 completed Not Available Not Available Not Available prazosin 1 mg capsule TAKE 1 CAPSULE BY MOUTH ONCE DAILY AT BEDTIME active Not Available Not Available No t Available lisinopri l 20 mg tablet TAKE 1 TABLET BY MOUTH ONCE DAILY FOR 30 DAYS 12/07 completed Not Available Not Available Not Available ondansetr on HCl 4 mg tablet Take 1 tablet 3 times a day by oral route as needed for 3 days. 09/15 completed Not Available Not Available Not Available prednison e 20 mg tablet TAKE 2 TABLETS BY MOUTH ONCE DAILY FOR 5 DAYS 05/12 completed Not Available Not Available Not Available metronida zole 500 mg tablet TAKE 1 TABLET BY MOUTH TWICE DAILY FOR 7 DAYS 10/22 completed Not Available Not Available Not Available ciproflox acin 500 mg tablet TAKE 1 TABLET BY MOUTH TWICE DAILY FOR 14 DAYS 10/22 completed Not Available Not Available Not Available sulfameth oxazole 800 mg-trimet hoprim 160 mg tablet TAKE 1 TABLET BY MOUTH TWICE DAILY 10/22 completed Not Available Not Available Not Available tramadol 50 mg tablet TAKE 1 TABLET BY MOUTH THREE TIMES DAILY NEEDED FOR PAIN 10/22 completed Not Available Not Available Not Available triamcino lone acetonide 0.1 % topical cream APPLY CREAM TO AFFECTED AREA TWICE DAILY active Not Available Not Available No t Available amoxicill in 875 mg tablet Take 1 tablet every 12 hours by oral route for 10 days. 06/05 completed Not Available Not Available Not Available phenazopy ridine 100 mg tablet TAKE 1 TABLET BY MOUTH THREE TIMES DAILY NEEDED FOR PAIN 02/17 completed Not Available Not Available Not Available cephalexi n 500 mg capsule TAKE 1 CAPSULE BY MOUTH TWICE DAILY FOR 7 DAYS 03/19 completed Not Available Not Available Not Available nitrofura ntoin macrocrys olive 100 mg capsule TAKE 1 CAPSULE BY MOUTH TWICE DAILY FOR 5 DAYS, MUST ADMINSTE R WITH MEAL OR FOOD 06/05 completed Not Available Not Available Not Available lidocaine 5 % topical patch APPLY 1 PATCH TOPICALL Y ONCE DAILY (MAY WEAR UP TO 12 HOURS) active Not Available Not Available No t Available gabapenti n 300 mg capsule TAKE 1 CAPSULE BY MOUTH THREE TIMES DAILY 06/10 completed Not Available Not Available Not Available omeprazol e 20 mg capsule,d elayed release TAKE 1 CAPSULE BY MOUTH ONCE DAILY active Not Available Not Available No t Available monteluka st 10 mg tablet Take 1 tablet every day by oral route. 04/13 completed Not Available Not Available Not Available fluticaso ne propionat e 50 mcg/actua tion nasal spray,vadim pension USE 1 SPRAY(S) IN EACH NOSTRIL ONCE DAILY 09/30 completed Not Available Not Available Not Available metformin ER 500 mg tablet,ex tended release 24 hr Take 1 tablet every day by oral route. 09/30 completed Not Available Not Available Not Available Ventolin HFA 90 mcg/actua tion aerosol inhaler INHALE 2 PUFFS BY MOUTH EVERY 4 HOURS active Not Available Not Available No t Available methylphe nidate ER 27 mg tablet,ex tended release 24 hr TAKE 1 TABLET BY MOUTH ONCE DAILY active Not Available Not Available No t Available atomoxeti ne 40 mg capsule TAKE 1 CAPSULE BY MOUTH ONCE DAILY FOR 3 DAYS, THEN INCREASE TO 2 TABLETS ONCE DAILY THEREAFT ER 02/17 completed makes her nauseous Not Available Not Available Not Available Concerta daily 02/26 completed Recorded 09/20/19 4:48PM by Kayli Reeder MD, Phone Encounte r; Refill Quantity : 0; Not Available Not Available Not Available Zepbound 5 mg/0.5 mL subcutane ous pen injector INJECT 5 MG SUBCUTAN EOUSLY EVERY 7 DAYS active Not Available Not Available No t Available Zepbound 2.5 mg/0.5 mL subcutane ous pen injector INJECT 1 SYRINGE ONCE A WEEK 04/19 completed Not Available Not Available Not Available Zepbound 7.5 mg/0.5 mL subcutane ous pen injector INJECT 7.5 MG SUB-Q EVERY WEEK 05/11 completed patient requests to go back to the 5mg Not Available Not Available Not Available Vitals Date Recorded Body height Body mass index (BMI) Body weight Oxygen saturation Body temperature Heart rate Systolic And Diastolic Provider Name and Address Organization Details Last Updated DateTime 172.72 cm 43.5 kg/m2 551686. 42 g 98 % 98.7 [degF] 112 /min 134/92 mm[Hg] Swetha Loza [facility] 5 09:51:08 Date Recorded Body height Body mass index (BMI) Body weight Body temperature Respiratory rate Heart rate Oxygen saturation Systolic And Diastolic Provider Name and Address Organization Details Last Updated DateTime 5 172.72 cm 43.8 kg/m2 254732. 6 g 97.2 [degF] 20 /min 98 /min 98 % 144/102 mm[Hg] Kim Llamas [facility] 5 15:05:00 Date Recorded Body height Body mass index (BMI) Body weight Oxygen saturation Heart rate Respiratory rate Body temperature Systolic And Diastolic Provider Name and Address Organization Details Last Updated DateTime 5 172.72 cm 43.6 kg/m2 683725. 57 g 99 % 90 /min 18 /min 96 [degF] 148/90 mm[Hg] Kim Farhad [facility] 5 10:53:42 Date Recorded Body height Body mass index (BMI) Body weight Body temperature Oxygen saturation Heart rate Systolic And Diastolic Provider Name and Address Organization Details Last Updated DateTime 5 172.72 cm 41.5 kg/m2 795978. 72 g 97.7 [degF] 97 % 102 /min 140/96 mm[Hg] [facility] 5 17:11:51 Date Recorded Body height Body mass index (BMI) Body weight Body temperature Oxygen saturation Heart rate Systolic And Diastolic Provider Name and Address Organization Details Last Updated DateTime 5 172.72 cm 37.9 kg/m2 103523. 5 g 97.4 [degF] 99 % 86 /min 124/86 mm[Hg] [facility] 14:19:02 Social History Question Answer Notes LastModified by Organizat ion Details LastModified Time Tobacco Smoking Status Former Smoker Kim maria [facility] 04/13/2024 09:21:53 Do You Have An Advance Directive? No Information not available 09/22/2022 Do You Wear A Helmet When Biking? No Information not available 09/22/2022 Are You Blind Or Do You Have Difficulty Seeing? No Information not available 09/22/2022 What Is Your Code Status? Full Code Information not available 09/22/2022 Are You Deaf Or Do You Have Serious Difficulty Hearing? No Information not available 09/22/2022 Which Illicit Or Recreational Drugs Have You Used? Marijuana [email or web address] Information not available 01/27/2025 What Was The Date Of Your Most Recent Tobacco Screening? 2025 Information not available 2025 What Is Your Current Pack Years? 10packyears [email or web address] Information not available 09/30/2024 Do You Use Your Seat Belt Or Car Seat Routinely? Yes Information not available 09/22/2022 Do You Participate In Social Media? Yes Information not available 09/22/2022 Have You Recently Traveled Abroad? No Information not available 09/22/2022 Do You Have Difficulty Walking Or Climbing Stairs? No Information not available 09/22/2022 Sex: Unknown Functional Status Question Answer Note LastModified by Organizat ion Details LastModified Time Do you use any illicit or recreational drugs? Yes [email or web address] Information not available 03/19/2024 What is your level of alcohol consumption? Occasional [email or web address] Information not available 04/13/2024 Do you have transportation difficulties? No Information not available 09/22/2022 Are you able to walk independently without assistance or assistive devices? [email or web address] Information not available 09/22/2022 Do you have difficulty doing errands alone? No Information not available 09/22/2022 Are you able to care for yourself independently? Yes Information not available 09/22/2022 Do you have difficulty dressing, bathing, grooming, or toileting? No Information not available 09/22/2022 Mental Status Question Answer Note LastModified by Organization D etails LastModified Time Do you have difficulty concentrating, remembering or making decisions? Yes Information no t available 09/22/2022 Family History Nothing Reported. Medical History Condition Response Coronary Artery Disease N Other N Gout N Kidney Stones N Blood Diseases N Hyperthyroidism N Breast Cancer N Blood Transfusion N Depression N Hypothyroidism N Lung Disease N COPD N Developmental or Behavioral Disorders N Defects or Inherited Disease N Breast Problem N Difficulty Swallowing N Anesthesia Complications N Anxiety Disorder N Meniere's disease N Muscle, Joint, or Bone Problems N Vision or Eye Problems N Arthritis N Infertility N Polyps N Cancer N Stroke N Varicosities N Endometriosis N Bladder or Kidney Problems N High Cholesterol N Liver Disease N Fibromyalgia N Headaches N Kidney Disease N Allergies/Hayfever N Heart Problems N Ear or Hearing Problems N Hospitalizations N Thyroid Problems N GI Problems N ADD/ADHD N Skin Problems N Eating Disorder N Anemia N Constipation N Mental Illness N Ovarian Cancer N Diabetes N Bedwetting N Seizures/Epilepsy N Tuberculosis N Eczema N Diverticulitis N Abuse/Domestic Violence N Asthma N Reflux/GERD N Hepatitis N Heart Disease N Pulmonary Embolism N Pre-Eclampsia N Hypertension N Chronic Ear Infections N Osteoporosis N Chicken Pox N Autism Spectrum Disorder (ASD) N Thrombophilias N Gynecological History Statement/Question Response Date of LMP 02/29/2024 LMP Definite Obstetrics History GPAL:G 3 P 1 0 2 1 Type Value Full Term 1 Spontaneous 2 Living 1 Total 3 Immunizations Vaccine Type Date Status Note Provider Nam e and Address Organization Details Recorded Time IPV 2 completed CHELSIE maria [facility] 05/22/2023 08:25:27 MMR 2 completed CHELSIE maria [facility] 05/22/2023 08:25:27 MMR 8 completed CHELSIE maria [facility] 05/22/2023 08:25:27 Tdap 1 completed CHELSIE maria [facility] 05/22/2023 08:25:27 Tdap 8 completed CHELSIE maria [facility] 05/22/2023 08:25:27 varicella 2 completed TAMATHA GREEN null, [facility] 05/22/2023 08:25:27 Hep B, unspecified formulation 8 completed TAMATHA GREEN null, [facility] 05/22/2023 08:25:27 Hep B, unspecified formulation 8 completed TAMATHA GREEN null, [facility] 05/22/2023 08:25:27 Hep B, unspecified formulation 7 completed TAMATHA GREEN null, [facility] 05/22/2023 08:25:27 OPV, trivalent 8 completed TAMATHA GREEN null, [facility] 05/22/2023 08:25:27 OPV, trivalent 8 completed TAMATHA GREEN null, [facility] 05/22/2023 08:25:27 OPV, trivalent 8 completed TAMATHA GREEN null, [facility] 05/22/2023 08:25:27 Hib (PRP-T) 8 completed TAMATHA GREEN null, [facility] 05/22/2023 08:25:27 Hib (PRP-T) 8 completed TAMATHA GREEN null, [facility] 05/22/2023 08:25:27 Hib (PRP-T) 8 completed TAMATHA GREEN null, [facility] 05/22/2023 08:25:27 Hib (PRP-T) 9 completed TAMATHA GREEN null, [facility] 05/22/2023 08:25:27 DTaP 8 completed TAMATHA GREEN null, [facility] 05/22/2023 08:25:27 DTaP 2 completed TAMATHA GREEN null, [facility] 05/22/2023 08:25:27 DTaP 8 completed TAMATHA GREEN null, [facility] 05/22/2023 08:25:27 DTaP 8 completed TAMATHA GREEN null, [facility] 05/22/2023 08:25:27 DTaP 9 [facility], [facility] 05/22/2023 08:25:28 Influenza, split virus, quadrivalent, PF 6 completed CHRISTINAATHA GREEN null, [facility] 05/22/2023 08:25:28 Tdap 4 completed Not Available [facility] 14:12:32 Past Encounters Encounter ID Performer Location Encounter Start Date Encounter Closed Date Diagnosis/Indication Diagnosis SNOMED-CT Code Diagnosis ICD10 Code Diagnosis IMO Codes Diagnosis Note [id number] Kayli Reeder MD [facility] ([facility]) [address] [place] [phone] 10/22/2022 16:53:25 10/22/2022 17:26:37 Attention deficit hyperactivity disorder 968885027 F90.9 Patient is has significan tly elevated BP and likely 2/2 Concerta. we will have to stop the medication and we will try Strattera. f/u in one month [id number] Kayli Reeder MD [facility] ([facility]) [address] [place] [address] [id number] 5 11/12/2022 14:12:36 11/12/2022 18:16:39 Essential hypertension 42306548 I10 Patient will monitor blood pressure and report if unable to control or if they develop new symptoms. Attention deficit hyperactivity disorder 103921202 F90.9 we will stop strattera. . We will consider medication s again when BP control is establishe d [id number] Kayli Reeder MD [facility] ([facility]) [address] [place] [address] [id number] 5 12/07/2022 15:00:28 12/07/2022 15:58:06 Essential hypertension 22591431 I10 Add HCTZ. Patient will monitor blood pressure and report if unable to control or if they develop new symptoms. Left-sided piriformis syndrome [id number] 08332 M54.32 home exercises handout provided to the patient to do BID. NSAIDs as needed. f/u if not better. [id number] Kayli Reeder MD [facility] ([facility]) [address] [place] [address] [id number] 5 12/27/2022 10:43:48 12/27/2022 15:39:00 Essential hypertension 19402214 I10 Continue current medication s. Patient will monitor blood pressure and report if unable to control or if they develop new symptoms. Attention deficit hyperactivity disorder 572936490 F90.9 We will restart Concerta at this time. Patient was encouraged to monitor blood pressure. Follow-up in 1 month. [id number] Kayli Reeder MD [facility] ([facility]) [address] [place] [address] [id number] 5 01/25/2023 10:45:18 01/25/2023 12:47:24 Morbid obesity 845851099 E66.01 Attention deficit hyperactivity disorder 075542412 F90.9 . Essential hypertension 20271613 I10 Continue current medication s. Patient will monitor blood pressure and report if unable to control or if they develop new symptoms. Hemangioma of skin 82305 006 D18.01 Chronic back pain 904960 002 G89.29 M54.9 [id number] Kayli Reeder MD [facility] ([facility]) [address] [place] [address] [id number] 5 01/31/2023 16:57:39 01/31/2023 18:10:05 Increased liver function 22318227 R94.5 Reviewed lab work and it showed elevated liver enzymes, otherwise the lab work was unremarkab le. We will go ahead and check a hepatitis panel today And order an ultrasound Low back pain 818683972 M54.50 Patient continues significan t back pain, but the x-rays were unremarkab le. We will treat her pain symptomati bob with lidocaine and tizanidine . Home exercises and stretches were recommende d and handout has been provided. We will send referral for physical therapy. [id number] Kayli Reeder MD [facility] ([facility]) [address] [place] [address] [id number] 5 02/18/2023 11:12:20 02/18/2023 19:48:41 [id number] Kayli Reeder MD [facility] ([facility]) [address] [place] [address] [id number] 5 04/17/2023 09:36:36 04/30/2023 22:22:20 Gastroesophageal reflux disease 469135106 K21.[address] Chavarria suggest mild gastritis. Continue omeprazole . Adult atte ntion deficit hyperactivity disorder 185413030 F90.9 Continues Concerta with no changes. Allergic rhinitis 222017 04 J30.9 Start Flonase to help with symptoms. [id number] NILA SHER [facility] ([facility]) [address] [place] [address] [id number] 5 05/22/2023 08:08:08 05/22/2023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
--- OUTSIDE RECORDS SUMMARY | 2025-07-06 01:52 | XMS_ITS | Clinical Summary ---
Author Organization [facility] Address [address] [place] [address] Care Team Providers Care Rfid Analyst Name Role Phone Unavailable Primary Care Provider Unavailabl e Allergies No known active allergies Medications methylphenidate ER 27 mg tablet,extended release 24 hr Take 1 Tablet by mouth daily. Active cetirizine (ZyrTEC) 10 mg tablet Take 1 Tablet by mouth daily. Active lidocaine (LIDODERM) 5 % Adhesive Patch, Medicated Apply 1 Patch to affected area every 24 hours. Active lisinopril-hydr oCHLOROthiazide (ZESTORETIC) 20-12.5 mg tablet Take 1 Tablet by mouth daily. Active omeprazole (PriLOSEC) 20 mg Capsule, Delayed Release(E.C.) Take 20 mg by mouth daily. Active methocarbamoL (ROBAXIN) 500 mg tablet Take 500 mg by mouth 4 times daily. Active albuterol sulfate HFA 90 mcg/actuation aerosol inhaler Take 2 Puffs by inhalation every 6 hours as needed for Shortness of Breath. Active oxyCODONE (ROXICODONE) 5 mg tabletIndicatio ns:Gallstones Take 1 Tablet (5 mg) by mouth every 4 hours as needed for Pain or Pain, Severe. Max Daily Amount: 30 mg 12 Tablet 11/03/2024 6:58 PM CDT Active Active Problems No known active problems Social History Tobacco Use Types Packs/Day Years Used Date Smoking Tobacco: Never Smokeless Tobacco: Never Tobacco Cessation:Counseling Given: Not Answered Alcohol Use Standard Drinks/Week Comments Yes 0 (1 standard drink = 0.6 oz pur e alcohol) Feeling Safe Answer Date Recorded Are you in a relationship wi th someone who hurts you emotionally and/or physically? No 11/03/2024 Food Insecurity Answer Date Recorded Patient needs follow up regardin 10/28/2024 Transportation Needs Answer Date Record ed Patient needs follow up regardin 10/28/2024 Utility Needs Answer Date Recorded Patient needs follow up regardin 10/28/2024 Comments No Sex and Gender Information Value Date Recorded Sex Assigned at Not on file Legal Sex Female 1:10 PM CDT Gender Identity Not on file Sexual Orientation Not on file Last Filed Vital Signs Vital Sign Reading Time Taken Comments Blood Pressure 130/68 11/12/2024 2:46 PM CDT Pulse 74 11/12/2024 2:46 PM CDT Temperature 36.6 C (97.8 F) 11/03/2024 6:00 PM CDT Respiratory Rate 18 11/12/2024 2:46 PM CDT Oxygen Saturation 96% 11/03/2024 6:00 PM CDT Inhaled Oxygen Concentration - - Weight 127.6 kg (281 lb 4.9 oz) 11/03/2024 8:25 AM CDT Height 172.7 cm (5' 8 ) 11/12/2024 2:46 PM CDT Body Mass Index 42.77 11/03/2024 8:25 AM CDT Plan of Treatment Health Maintenance Due Date Last Done Comments CERVICAL CANCER SCREENING 2018 HPV/Cotest (21-29) 2018 PAP SMEAR 2018 INFLUENZA VACCINE (#1) 2025 04/04/2016 DTAP/TDAP/TD VACCINES (9 - T d or Tdap) 02/14/2034 02/15/2024, 06/24/2018, 02/12/2011, Additional history exists HEPATITIS B VACCINES Completed 03/02/1998, 1997, 1997 HPV VACCINES (No Doses Required) Completed Medical Devices Implanted Type Area Band Nailer Device Identifier Shelf Expiration Date Model / Serial / Lot Clip Hemjatink g [id number] - Csc - [id number] Implanted:Qty: 1 on 11/03/2024 by Huber Duong MD at [facility] Clip N/A: Abdomen TELEFLEX- [employer]EC[employer]URE SYS [id number] 06/13/2029 [id number] / / [id number] Insurance [facility] MEDICAID RX INFOCROSSING Medicaid Advance Directives For more information, please contact: [phone] * Full Code (Latest Code Status on File) Date Activated Date Inactivated Comments 11/03/2024 8:17 AM 11/03/2024 8:55 PM
--- OUTSIDE RECORDS SUMMARY | 2025-07-06 01:52 | XMS_ITS | Continuity of Care Document ---
Author Organization ESPINOZA Erik Bowie [facility], L.LAlexisCAlexis, [facility] ([facility]) Address [address] [place] [address] Care Team Providers Care Youth Officer Name Role Phone KAYLI REEDER Primary Care [...] available Not available Lab None recorded. Referral None recorded. Procedures None recorded. Surgeries None recorded. Imaging None recorded. Medication Orders lidocaine 5 % topical patch 2024 025 [facility], [address], [place], [address], 2025 14:44:42 Concerta 27 mg tablet,ex tended release 2024 025 [facility], [address], [place], [address], 2025 14:39:15 Patient TargetsNo targets recorded. Patient Instructions Encounter Date Encounter Id Patient Instructions Last Modified By Organization Details Last Modified Time 2025 [id number] - Consider therapy options for anxiety at the [facility]. - Continue pursuing a healthy weight [...] We explored therapy options available at the [facility] for tailored psychological support. Follow-up was advised to reassess medication efficacy, weight management, and mental health support initiatives. [email or web address] Not available 2025 14:46:39 Reason for Referral None Reported. Problems Name Problem SNOMED Code Status Onset Date Resolution Date Notes Provider Name and Address Organization Details Recorded Time Mixed anxiety and depressi ve disorder 339350244 Active 2021 ANXIETY AND DEPRESSI ON; 06/27/20 22 8:54AM by Sushma Schumacher, Office Visit; Promoted ; acuity set as *; SUSHMA maria [facility] L.L.CAlexis 3 09:49:48 Anxiety 84301911 Active 2022 Kayli Reeder MD [address] [facility], [place], [address] , [facility], L.L.CAlexis 3 16:02:40 Depressi ve disorder 14426486 Completed 202210/27/2024 Removal Reason: Michelle maria [facility].L.CAlexis 5 12:56:04 Attentio n deficit hyperact ivity disorder 576275512 Completed 202210/27/2024 Removal Reason: cheri barajas Kayli Reeder MD [address] [place] [address], [phone], [facility] 5 18:22:23 [facility]ia l hyperten tong 99451577 Active 2022 Kayli Reeder MD [address] [place] [address], [phone], [facility] 3 16:02:45 Left-jose g ed piriform is syndrome 14390375647 9106 Active 2022 SUSHMA maira, [facility] 3 09:49:49 Morbid obesity 543807480 Active 2022 SUSHMA maria, [facility] 3 09:49:48 Chronic back pain 215979721 Active 2022 SUSHMA maria, [facility] 3 09:49:48 Increase d liver function 89306189 Active 2022 SUSHMA maria, [facility] 3 09:49:49 Low back pain 363332816 Active 2022 SUSHMA maria, [facility] 3 09:49:49 Gastroes ophageal reflux disease 279198084 Active 2022 Kim maria, [facility] 5 12:53:16 Adult attentio n deficit hyperact ivity disorder 991012517 Active 2022 Kim maria, [facility] 5 12:52:35 Allergic rhinitis 04333327 Completed 202210/27/2024 Kim maria, [facility] 5 12:52:45 Atopic dermatit is 55894391 Completed 202210/27/2024 Kim maria, [facility], AniyahL.CAlexis 12:52:55 Hemangio ma of skin 21956771 Completed 202210/27/2024 Kim maria, [facility] 12:53:29 Hemorrho ids 83776014 Active 2023 Kim maria, [facility] 5 12:53:38 Lumbosac ral radiculo shannon 1197306 Active 2023 Kim maria [facility].L.CAlexis 5 12:54:03 Myofasci al pain 228480037 Active 2023 Kim maria, [facility] 5 12:54:25 Degenera tion of lumbar interver tebral disc 55414454 Active 2023 Kim maria [facility] 12:53:10 Post-tra umatic stress disorder 66253023 Active 2023 Kim maria [facility] 5 12:54:50 Mild intermit tent asthma 288084915 Active 2023 Kim maria, [facility] 12:54:09 Lacerati on of right thumb 61445768354 891425 Completed 202310/27/2024 Kim maria [facility].L.CAlexis 12:53:46 Polycyst ic ovary syndrome 634615448 Active 2023 Kim maria [facility] 12:54:41 Liver enzymes level above referenc e range 460608806 Active 2023 Kim maria [facility] 5 12:53:57 Neck pain 75421933 Active 2024 Kim maria, [facility] 12:54:33 Cholelit hiasis without obstruct ion 80254398 Active 2024 Kimmarie Llamas crow [facility] 12:56:30 Attentio n deficit hyperact ivity disorder 047412111 Active 2024 Kayli Reeder MD [address] [place] [address] 5, [facility] 18:22:23 Body mass index 40+ - severely obese 658951410 Active 2024 Kayli Reeder MD [address] [place], [place] [phone], [facility] 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 15:48:48 Obesity caused by energy imbalanc e 123222443 Active 2024 Kayli Reeder MD [address] [place], [place] [phone], [facility] 15:50:33 Problem Notes None recorded. Procedures Surgical History Date Name Laterality Status Provider Name and Address Organization Details Recorded Time 04/01/20 23 [facility]2023 11:16:30 07/08/19 21 [facility] 15:10:59 07/08/19 15 angiography completed [facility], Shahri[facility] 03/19/2024 15:10:52 [facility] 11:00:26 Imaging Results None [...] Updated DateTime 5 172.72 cm 37.9 kg/m2 767783. 5 g 97.4 [degF] 99 % 86 /min 124/86 mm[Hg] [facility], L.L.CAlexis 5 14:19:02 Social History Question Answer Notes LastModified by Organizat ion Details LastModified Time Tobacco Smoking Status Former Smoker Kim maria [facility] 04/13/2024 09:21:53 Do You Have An Advance [...] Or Recreational Drugs Have You Used? Marijuana [email or web address] Information not available 01/27/2025 What Was The Date Of Your Most Recent Tobacco Screening? 2025 [email or web address] Information not available 2025 What Is Your Current Pack Years? 10packyears [email or web address] Information not available 09/30/2024 Do You Use [...] use any illicit or recreational drugs? Yes [email or web address] Information not available 03/19/2024 What is your level of alcohol consumption? Occasional [email or web address] Information not available 04/13/2024 Do you have [...] Recorded Time IPV 2 completed CHELSIE maria [facility], [facility] 05/22/2023 08:25:27 MMR 2 completed CHELSIE maria [facility], [facility] 05/22/2023 08:25:27 MMR 8 completed CHELSIE maria [facility], [facility] 05/22/2023 08:25:27 Tdap 1 completed CHELSIE maria [facility], [facility] 05/22/2023 08:25:27 Tdap 8 completed CHELSIE maria [facility] 05/22/2023 08:25:27 varicella 2 completed TAMATHA GREEN null, [facility] 05/22/2023 08:25:27 Hep B, unspecified formulation 8 completed TAMATHA GREEN null, [facility] 05/22/2023 08:25:27 Hep B, unspecified formulation 8 completed TAMATHA GREEN null, [facility] 05/22/2023 08:25:27 Hep B, unspecified formulation 7 completed TAMATHA GREEN null, [facility] 05/22/2023 08:25:27 OPV, trivalent 8 completed TAMATHA GREEN null, [facility] 05/22/2023 08:25:27 OPV, trivalent 8 completed TAMATHA GREEN null, [facility] 05/22/2023 08:25:27 OPV, trivalent 8 completed TAMATHA GREEN null, [facility] 05/22/2023 08:25:27 Hib (PRP-T) 8 completed TAMATHA GREEN null, [facility] 05/22/2023 08:25:27 Hib (PRP-T) 8 completed TAMATHA GREEN null, [facility] 05/22/2023 08:25:27 Hib (PRP-T) 8 completed TAMATHA GREEN null, [facility] 05/22/2023 08:25:27 Hib (PRP-T) 9 completed TAMATHA GREEN null, [facility] 05/22/2023 08:25:27 DTaP 8 completed TAMATHA GREEN null, [facility] 05/22/2023 08:25:27 DTaP 2 completed CHRISTINAATHA GREEN null, [facility] 05/22/2023 08:25:27 DTaP 8 completed CHRISTINAATHA GREEN null, [facility] 05/22/2023 08:25:27 DTaP 8 completed TAMATHA GREEN null, [facility] 05/22/2023 08:25:27 DTaP 9 completed CHRISTINAATHA GREEN null, [facility] 05/22/2023 08:25:28 Influenza, split virus, quadrivalent, PF 6 completed LYDIAA BHUMIKA maria, [facility] 05/22/2023 08:25:28 Tdap 4 completed [facility] Available [facility] 14:12:32 Past Encounters Encounter ID Performer Location Encounter Start Date Encounter Closed Date Diagnosis/Indication Diagnosis SNOMED-CT Code Diagnosis ICD10 Code Diagnosis IMO Codes Diagnosis Note [id number] Kayli Reeder MD [facility] ([facility]) [address] [place] [phone] 2025 14:12:07 2025 15:35:56 Attention deficit hyperactivity disorder 973374545 F90.9 - Continue Concerta, reassess in light of conception plans. 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 Mixed anxi ety and depressive disorder 944399653 F41.9 - Arrange mental health support for surgical anxiety. Obesity ca used by energy imbalance 032852876 E66.812 E66.09 68197878 - doing well with zepbound.. ...continu e medication and lifestyle changes. Health Concerns Section Related Observation LastModified by Organization Detai ls LastModified Time None Recorded Concern Status LastModified by Organization Details LastModified Time None Recorded Payers Encounter Date Sequence Insurance Name Policy Number Policy Mon[place] Covered Member ID [place] Member ID Guarantor Name [id number] 1 [employer] [place] (MEDICA[place] REPLACEMENT - HMO) [id number] Jaci Suh [id number] [place] Suh Notes Date Note Type Note Provider Name and Address Organization Details Recorded Time 2025 text/html The patient is a 30-year-old [...] of eccrine angiomatosus harmatoma Kayli Reeder MD [address] [place] [address], [phone], [facility] 2025 15:51:24 OBGyn Episode No OBEpisode recorded.
[2025-07-06] MEDS: ondansetron hcl ODT 4 mg Tab PO (02:53)
[2025-07-06 02:54] VITALS: RESP 18; O2SAT 98
[2025-07-06] MEDS: morphine 4 mg/mL SDV 1 mL IM (02:54)
--- NOTE | 2025-07-06 02:57 | W.ED.EXTPRO ---
HPI - Extremity Problem General: Chief complaint: Extremity Injury, Lower Stated complaint: Possible RT broken foot Time Seen by Provider: 07/06/25 02:03 History of Present Illness: Patient is a 30-year-old female presenting with a chief complaint of right foot pain. Patient states she was chasing after her dog, stepped on the stair wrong, slipped and has developed pain in her right foot over the base of her fifth metatarsal. She states she did not twist her ankle, denies ankle pain. She did not fall, hit her head or lose consciousness. She does not have any motor or sensory deficits. She states that is quite painful to ambulate on the right foot. Related Data Home Medications ?Medication ?Instructions ?Recorded ?Confirmed acetaminophen 325 mg tablet 325 mg PO QID PRN 05/10/21 06/22/25 (Tylenol) albuterol sulfate 90 mcg/actuation 2 puff inhalation Q6H PRN 05/10/21 06/22/25 aerosol inhaler (ProAir HFA) naproxen 500 mg tablet 500 mg PO BID PRN 08/02/22 06/22/25 lidocaine 4 % topical patch 1 patch topical DAILY PRN 02/07/23 06/22/25 (AsperFlex (lidocaine)) methylphenidate HCl 27 mg 27 mg PO DAILY 02/07/23 06/22/25 tablet,extended release 24 hr (Concerta) cetirizine 10 mg tablet (24Hour 10 mg PO DAILY PRN 01/03/24 06/22/25 Allergy) Previous Rx's ?Medication ?Instructions ?Recorded oxycodone 5 mg tablet 5 mg PO Q8H PRN pain (scale score 07/06/25 7-10) #12 tabs Allergies Allergy/AdvReac Type Severity Reaction Status Date / Time No Known Allergies Allergy Verified 12/22/24 08:36 [facility] ED [facility]: Medical History (Updated 07/06/25 @ 03:00 by Gabriella Dowling MD) Substance abuse Other reactions to severe stress Major depressive disorder, recurrent episode Impression: Patient had depression prior to her most recent . She had been on fluoxetine during the but had recently stopped it due to forgetting to take the medication. Patient reporting depression symptoms. Patient encouraged to restart medications. Patient also encouraged to follow-up with [facility]. Recorded 05/19/2019 01:04 PM by Sylvie Menezes APN,COBY, [facility] Lab/Procedure Order. FLUoxetine HCl 10MG, 1 (one) Capsule daily, #90, 90 days starting 05/19/2019, No Refill. Active. 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 Armstrong in [facility]. She has never been on blood thinners for this. Venous malformation (~2014) in her right lower leg---evaluated in [facility] History of femoral angiogram 04/2015--for venous malformation on the right ankle Surgical History Hx of breast reduction, elective History of bilateral breast reduction surgery (~11/2020) performed at [facility] in [place] Family History Grandmother Heart disease Paternal--Maternal Great Grandmother Grandfather Thyroid disease Maternal Family/Other Uterine cancer Maternal side--unsure of who Denies family history of Colon cancer Diabetes Breast cancer Hypertension Stroke Social History Smoking and tobacco/nicotine status: former use of tobacco/nicotine Alcohol intake: current Alcohol intake frequency: 0-2 Drinks per Day Substance/Drug Use: current Substance/Drug use frequency: daily Marital status: Number of children: 1 Pets and animals: Yes Pets & animals: dog(s) and snake(s) Physical Exam Narrative: EXAM NARRATIVE: Vital signs were reviewed. Patient is alert and oriented. Patient is breathing comfortably, no increased WOB or accessory muscle use. SpO2 is above 95% on RA. No hypotension or tachycardia. Patient is neurovascularly intact, palpable DP and PT pulse. No motor or sensory deficit noted. There is swelling and bruising over the base of the fifth metatarsal. There is no pain with palpation over the medial, lateral and posterior malleolus. Course Vital Signs: Vital signs: Vital Signs Temperature 97.8 F 07/06/25 01:52 Pulse Rate 112 H 07/06/25 01:52 Respiratory Rate 18 07/06/25 02:54 Blood Pressure 161/113 07/06/25 01:52 Pulse Oximetry 98 07/06/25 02:54 Oxygen Delivery Me thod Room Air 07/06/25 01:52 MDM - Extremity (Nontraumatic) Medical Decision Making 30yo female with a chief complaint of right foot pain after slipping on the stairs. Differential diagnosis includes, but is not limited to, fracture, dislocation, sprain, contusion, hematoma/ecchymosis, laceration, other. Patient was evaluated with x-rays which I personally reviewed and interpreted and shows nondisplaced Harper fx of the R 5th metatarsal. Patient was placed in a posterior leg splint, treated for pain with IM Toradol, IM morphine, p.o. Tylenol and PO zofran. Will refer to ortho outpatient. Advised on nonweight bearing, provided crutches. Patient was counseled on supportive care at home, given return precautions and discharged in stable condition with recommendation for outpatient follow-up with primary care nurse or doctor. XR interpretation done by ED provider, pending radiology final review ED provider radiology interpretation(s): +Harper Fx of R 5th metatarsal Discharge Plan Discharge Patient Disposition: Home Clinical Impression: Harper fracture Qualifiers: Encounter type: initial encounter Fracture type: closed Laterality: right Qualified Code(s): S99.191A - Other physeal fracture of right metatarsal, initial encounter for closed fracture Condition: Stable Prescriptions: New oxycodone 5 mg tablet 5 mg PO Q8H PRN (Reason: pain (scale score 7-10)) Qty: 12 0RF No Action acetaminophen [Tylenol] 325 mg tablet 325 mg PO QID PRN albuterol sulfate [ProAir HFA] 90 mcg/actuation HFA aerosol inhaler 2 puff inhalation Q6H PRN naproxen 500 mg tablet 500 mg PO BID PRN lidocaine [AsperFlex (lidocaine)] 4 % adhesive patch,medicated 1 patch topical DAILY PRN methylphenidate HCl [Concerta] 27 mg tablet extended release 24hr 27 mg PO DAILY cetirizine [24Hour Allergy] 10 mg tablet 10 mg PO DAILY PRN Discharge Orders: Discharge ED (Routine); Ordered 07/06/25 Ordered By: Gabriella Dowling Referrals: Jose Reeder MD [Primary Care Provider, Family Practice] Patient Instructions: Opioid Safety, Pain Management, Patient Portal & Vilma Instructions, Foot Fracture in Adults (ED) Activity Restrictions/Additional Instructions: Please continue to monitor your condition closely at home. Take Ibuprofen 400mg and Tylenol 500-1000mg every six hours for pain and inflammation. You may take oxycodone for severe pain only. Rest and elevate your injured extremity. DO NOT BEAR WEIGHT ON YOUR BROKEN FOOT. If your condition worsens or additional concerns arise, please return promptly to the emergency department for reassessment. Follow up with an orthopaedic specialist in one week. Print Language: Citizen Of [place] Coding Level of Care Code ED Beet Flumer for Gutierrez Hanks
== END 2025-07-06 03:47 | disposition home or self-care (01) ==
PROVIDERS: Emergency Provider Emergency Medicine; PCP Family Medicine
DX: S99.191A Other physeal fracture of right metatarsal, initial encounter for closed fracture (principal); W01.0XXA Fall on same level from slipping, tripping and stumbling without subsequent striking against object, initial encounter; Z87.891 Personal history of nicotine dependence
CPT/HCPCS: 73610; 73630; 96372; 99284; J1885; J2270; J9999; Q0162